=== PATIENT | female | born 1965 | race African-American/Black ===

== ENCOUNTER 2022-01-01 18:51 | Emergency (ER) | payer MEDICAID ==
[~2022-01-01] VITALS: Ht 160 cm; Wt 95.3 kg
[2022-01-01] MEDS ORDERED: SODIUM CHLORIDE 0.9% 1,000 ML IV ONE (19:45)
[2022-01-01] MEDS ORDERED: KETOROLAC TROMETH 30 MG/ML 1ML VIAL IV ONE (19:45)
[2022-01-01 20:30] LABS: Urine Bacteria MANY /hpf (None Seen); Urine Blood TRACE /uL (Negative); Urine Hyaline Cast MANY /lpf (0 - 2); Urine Mucus FEW (None Seen); Urine WBC 18 /hpf (0 - 5)
[2022-01-01 20:34] LABS: Basophils # (auto) 0 10 ^3/uL (0-0.2); Basophils % (auto) 0.4 % (0.0-2.0); Eosinophils # (auto) 0 10 ^3/uL (0-0.8); Eosinophils % (auto) 0.2 % (0.0-7.0); Hematocrit 39.2 % (36.0-46.0); Hemoglobin 13.6 g/dL (12.2-16.2); Lymphocytes # (auto) 1.3 10 ^3/uL (0.4-5.4); Lymphocytes % (auto) 20.9 % (10.0-50.0); Mean Corpuscular Hgb Conc. 34.6 g/dL (32.0-36.0); Mean Corpuscular Volume 86.6 fL (80.0-100.0); Monocytes # (auto) 0.3 10 ^3/uL (0-1.3); Monocytes % (auto) 5.6 % (0.0-12.0); Neutrophils # (auto) 4.5 10 ^3/uL (1.6-8.6); Neutrophils % (auto) 72.9 % (37.0-80.0); Nucleated Red Blood Cells % 0.2 %; Red Blood Cells 4.53 10^6/uL (4.0-5.20); Red Cell Distribution Width 12.6 % (11.8-14.3); White Blood Cell 6.2 10^3/uL (4.4-10.8)
[2022-01-01 20:50] VITALS: BP 136/67
[2022-01-01 20:51] LABS: Albumin 3.7 g/dL (3.4-5.0); BUN/Creatinine Ratio 8.4; Calcium 9.1 mg/dL (8.5-10.1); Magnesium 2.3 mg/dL (1.6-2.6)
[2022-01-01 20:54] LABS: Bilirubin, Total 0.6 mg/dL (0.2-1.0); Total Protein 8.1 g/dL (6.4-8.2)
[2022-01-01 20:56] LABS: Potassium 3.7 mmol/L (3.5-5.1)
[2022-01-01] MEDS ORDERED: CYCL-837 PO (21:07)
[2022-01-01] MEDS ORDERED: NAP500T PO (21:07)
[2022-01-01] MEDS ORDERED: SULF400T11 PO (21:07)
== END 2022-01-01 21:25 | disposition home or self-care (01) ==
LOC: EDBD 18:51 → ER 18:51 → EDUNIT# 18:51 → ER 21:25
DX: M62.838 Other muscle spasm (principal); R55 Syncope and collapse; N39.0 Urinary tract infection, site not specified; E04.8 Other specified nontoxic goiter
CPT/HCPCS: 36415; 72125; 80053; 81001; 83735; 85025; 93005; 96361; 96374; 99285; J1885; J7030

== ENCOUNTER 2025-04-11 10:57 | Outpatient (CLI) | payer MEDICAID ==
[~2025-04-11 10:57] MED LIST: CYCL-837 PO; NAP500T PO; SULF400T11 PO
[2025-04-11] MEDS: fentaNYL CITRATE 100 MCG/2 ML VL ONE (11:16)
[2025-04-11] MEDS: MIDAZOLAM HCL 2MG/2ML 2ml VIAL (1mg/ml) ONE (11:16)
--- NOTE | 2025-04-11 14:02 | DVH ---
PROCEDURE: CT-guided biopsy Procedural Personnel Attending physician(s): Zac Klein Fellow physician(s): None Resident physician(s): None Advanced practice provider(s): None Procedure Date (//yy): 04/11/2025 Pre-procedure diagnosis: Abnormal blood count Post-procedure diagnosis: Same Indication: Organ dysfunction Previous biopsy of same target: No Additional clinical history: None Complications: No immediate complications. IMPRESSION: CT-guided biopsy of right iliac bone marrow. Plan: Specimen(s) sent for evaluation. PROCEDURE SUMMARY: - Percutaneous CT-guided coaxial core needle biopsy of right iliac bone marrow - Additional procedure(s): None PROCEDURE DETAILS: Pre-procedure Reference imaging for biopsy target: None Consent: Informed consent for the procedure including risks, benefits and alternatives was obtained a nd time-out was performed prior to the procedure. Preparation: The site was prepared and draped using maximal sterile barrier technique including cutan eous antisepsis. Anesthesia/sedation Level of anesthesia/sedation: Moderate sedation (conscious sedation) Anesthesia/sedation administered by: Independent trained observer under attending supervision with co ntinuous monitoring of the patient s level of consciousness and physiologic status Total intra-service sedation time (minutes): 30 Imaging prior to biopsy The patient was positioned prone. Initial imaging was performed. Biopsy target: - Organ or target location:Iliac bone - Laterality: Right - Maximal diameter (cm): NA Other findings: None Biopsy Local anesthesia was administered. Under CT guidance, the biopsy needle was advanced to the target an d biopsy was performed. Coaxial needle: 10 gauge Core needle biopsy device: [employer] Core needle size: 12 gauge Number of core specimens: 1 Aspirate volume: 15 cc Fine needle aspiration device: NA Fine needle size: Not applicable Number of FNA specimens: Not applicable On-site assessment of biopsy adequacy: No Additional sampling recommendations: None Preliminary assessment of sample adequacy: Not applicable Needle removal The biopsy needle was removed and a sterile dressing was applied. Tract embolization: None Imaging following biopsy Immediate post-biopsy imaging was performed using noncontrast CT. Post-biopsy imaging findings: No significant hemorrhage Contrast Contrast agent: None Contrast volume (mL): [address] dose length product (mGy-cm): 1277.[address] policies/protocols and the ALARA principle, radiation dose reduction techniques (such as automated exposure control, adjustment of mA/kV according to the patient's size, and/or i terative reconstruction technique) were utilized for this examination. Additional Details Additional description of procedure: None Registry event: V/3/g Device used: None Equipment details: None Unique Device Identifiers: Not available Specimens removed: Biopsy samples as detailed above Estimated blood loss (mL): Less than 10 Standardized report: [id number] Attestation Signer name: Zac Klein I attest that I was present for the entire procedure. I reviewed the stored images and agree with the report as written.
== END 2025-04-11 17:00 | disposition home or self-care (01) ==
LOC: XYW 10:57
PROVIDERS: ATTEND Internal Medicine
DX: D70.4 Cyclic neutropenia (principal); I20.89 Other forms of angina pectoris; Z79.899 Other long term (current) drug therapy; Z80.6 Family history of leukemia; Z80.1 Family history of malignant neoplasm of trachea, bronchus and lung; Z80.3 Family history of malignant neoplasm of breast
CPT/HCPCS: 38222; 77012; J2250; J3010; 10005; 72192